=== PATIENT | male | born 1960 | race Two or more races ===

== ENCOUNTER 2021-01-14 08:30 | Inpatient (IN) | payer OTHER ==
[~2021-01-14] VITALS: Ht 162.6 cm; Wt 57.2 kg
[2021-01-14] MEDS ORDERED: SYNTHROID112 MCG PO (16:22)
[2021-01-18] MEDS ORDERED: RECTICARE30 GM TOP (07:56)
[2021-01-18] MEDS ORDERED: OXYC1TAB9 PO (07:56)
== END 2021-01-18 09:19 | disposition home or self-care (01) | DRG 349 ==
LOC: ADM 08:30 → SURG 01-17 05:30 → O/R 01-17 05:30 → EDSTATUS 01-17 08:30 → SURH 01-17 08:30 → CIR.AMB 01-17 08:30 → SURG 01-17 11:24 → SURH 01-17 16:15 → SURG 01-18 09:19
PROVIDERS: ADMIT Surgery; ATTEND Surgery
PROC: 0DBP7ZZ Excision of Rectum, Via Natural or Artificial Opening (ICD-10-PCS; principal; 2021-01-17 16:15)
DX: D12.8 Benign neoplasm of rectum (principal); D69.6 Thrombocytopenia, unspecified; D72.819 Decreased white blood cell count, unspecified; E03.9 Hypothyroidism, unspecified; Z85.038 Personal history of other malignant neoplasm of large intestine

== ENCOUNTER 2022-09-18 05:20 | Day surgery (SDC) | payer OTHER ==
[~2022-09-18 05:20] MED LIST: OXYC1TAB9 PO; RECTICARE30 GM TOP; SYNTHROID112 MCG PO
== END 2022-09-18 17:05 | disposition home or self-care (01) ==
LOC: AMB-ENDOS 05:20
PROVIDERS: ATTEND Surgery
DX: D12.0 Benign neoplasm of cecum (principal); D12.3 Benign neoplasm of transverse colon; D12.6 Benign neoplasm of colon, unspecified; K57.90 Diverticulosis of intestine, part unspecified, without perforation or abscess without bleeding; Z20.822 Contact with and (suspected) exposure to COVID-19; E03.9 Hypothyroidism, unspecified; E11.9 Type 2 diabetes mellitus without complications